=== PATIENT | female | born 1950 | race Caucasian/White ===

== ENCOUNTER 2022-07-16 14:43 | Outpatient (CLI) | payer MEDICARE, OTHER | END 2022-07-16 14:44 | disposition home or self-care (01) | LOC: RAD 14:43 | PROVIDERS: ATTEND Urology | DX: N20.0 Calculus of kidney (principal) | CPT/HCPCS: 74018 ==

== ENCOUNTER 2022-12-23 13:08 | Outpatient (CLI) | payer MEDICARE, OTHER | END 2022-12-23 13:09 | disposition home or self-care (01) | LOC: ULT 13:08 | PROVIDERS: ATTEND Urology | DX: N20.0 Calculus of kidney (principal); N39.0 Urinary tract infection, site not specified | CPT/HCPCS: 74018; 76770 ==